=== PATIENT | male | born 1980 | race Caucasian/White ===

== ENCOUNTER 2019-12-01 19:58 | Emergency (ER) | payer OTHER ==
[2019-12-01] MEDS ORDERED: SODIUM CHLORIDE 0.9% 1000ML 1,000 ML IVS ONE (20:06)
[2019-12-01] MEDS ORDERED: ONDANSETRON INJ 4 MG/2 ML VIAL IV ONE (20:06)
[2019-12-01] MEDS ORDERED: MORPHINE SULFATE INJ 10 MG/ML VIAL IV ONE (20:06)
[2019-12-01 20:19] VITALS: O2SAT 99
[2019-12-01] MEDS ORDERED: ALUM & MAG HYDROX-SIMETHICONE 30 ML, LIDOCAINE VISCOUS 2% 15 ML PO ONE ×2 (20:19)
--- NOTE | 2019-12-01 20:19 | ED.PDOC ---
History of Present Illness - General Chief Complaint: Abdominal Pain Stated Complaint: vomiting since 0200, abd pain Time Seen by Provider: 12/01/19 20:01 Information Source: patient, RN notes reviewed, Vital Signs reviewed, family Exam Limitations: no limitations - History of Present Illness Initial Comments: Pt presents for upper abdominal pain and vomiting. States he crawfish last night and awoke at 0200 today with sharp, burning epigastric pain and nausea. States he has vomited multiple times today. Denies fever, chills or diarrhea. Denies any previous abdominal surgeries or gall bladder problems. Took Zofran at 1400 today with improvement. Review of Systems - Review of Systems Constitutional: Denies: chills, fever Respiratory: Denies: cough, short of breath Cardiology: Denies: chest pain, edema, palpitations, syncope Gastrointestinal/Abdominal: States: abdominal pain, nausea, vomiting. Denies: diarrhea Genitourinary: Denies: dysuria, frequency, hematuria Musculoskeletal: Denies: back pain, neck pain Neurological: Denies: headache, paresthesia All other Systems: Reviewed and Negative Past Medical History (General) - Patient Medical History Hx Asthma: No Hx Cardiac Disorders: No Hx Hypertension: No Hx Diabetes: No Hx Gastroesophageal Reflux: Yes Surgical History: no surgical history - Vaccination History Hx Tetanus, Diphtheria Vaccination: Yes Hx Influenza Vaccination: No - Social History Hx Tobacco Use: No Hx Chewing Tobacco Use: Yes Tins Per Day Chewed: 1 Hx Alcohol Use: Yes Family Medical History - Family History Grandparents Hx Cardiac Disease: Yes Physical Exam - Physical Exam General Appearance: Alert, Comfortable, No apparent distress Neck: full range of motion, supple Respiratory: chest non-tender, lungs clear, normal breath sounds, no respiratory distress Cardiovascular/Chest: regular rate, rhythm, no edema Gastrointestinal/Abdominal: soft, other - Mild TTP epigastrium. no guarding or rigidity Back Exam: no CVA tenderness, no vertebral tenderness Extremity: normal range of motion, non-tender, no pedal edema Neurologic: alert, normal mood/affect Skin Exam: normal color Progress - Progress Progress: 12/01/19 22:26 Pt presents to ED with burning upper abdominal pain with N/V since 0200. Thinks might have been due to crawfish he ate the previous night. CT performed to evaluate for obstruction, infection, biliary colic and shows acute gastritis. Labs and VS reassuring. Pain and nausea resolved with GI cocktail, pain meds and antiemetics. D/W pt and spouse results and feel comfortable going home on prilosec and carafate. Will f/u with GI for possible endoscopy if not improving. SRP given. - Results/Orders Results/Orders: CT ABD/PELVIS IMPRESSION: 1. Findings suggestive of nonspecific gastritis. 2. Other findings as above. 12/01/19 20:06 IV:Start .ONCE URINALYSIS Stat 12/01/19 20:07 Hold Metformin x 48Hrs [id number] 12/01/19 20:15 EKG .ONCE Laboratory Results - last 24 hr 12/01/19 12/01/19 20:37 20:37 WBC 12.0 H RBC 5.14 Hgb 14.7 Hct 44.2 MCV 85.9 MCH 28.6 MCHC 33.3 RDW 14.0 Plt Count 322 MPV 7.2 L Absolute Neuts (auto) 10.20 H Absolute Lymphs (auto) 1.10 Absolute Monos (auto) 0.70 Absolute Eos (auto) 0.00 Absolute Basos (auto) 0.00 Neutrophils % 85.0 H Lymphocytes % 8.9 L Monocytes % 5.8 Eosinophils % 0.0 L Basophils % 0.3 Sodium 136 Potassium 3.2 L Chloride 101 Carbon Dioxide 22 Anion Gap 16.2 BUN 10 Creatinine 0.78 BUN/Creatinine Ratio 12.8 Random Glucose 117 H Serum Osmolality 272.0 L Calcium 9.3 Total Bilirubin 0.9 AST 23 ALT 27 Alkaline Phosphatase 49 Serum Total Protein 8.2 Albumin 5.0 Globulin 3.2 Albumin/Globulin Ratio 1.6 Lipase 23 - EKG/XRAY/CT Comments: NSSR, rate 68, nml intervals, no ST abnormality Departure - Departure Clinical Impression: Upper abdominal pain Acute gastritis without bleeding Qualifiers: Gastritis type: other gastritis Qualified Code(s): K29.00 - Acute gastritis without bleeding Nausea & vomiting Qualifiers: Vomiting type: unspecified Vomiting Intractability: non-intractable Qualified Code(s): R11.2 - Nausea with vomiting, unspecified Time of Disposition: 22:21 Disposition: Discharge to Home or Self Care Condition: Good Departure Forms: ED Discharge - Pt. Copy, Patient Portal Self Enrollment Instructions: Gastritis (DC) Diet: bland diet Activity: increase activity as tolerated Prescriptions: Ondansetron HCl [Zofran] 4 mg PO Q6HR PRN #15 tab PRN Reason: Nausea Omeprazole [Prilosec Cap] 20 mg PO DAILY #30 cap Sucralfate Tab [Carafate Tab] 1 gm PO ACHS #60 tablet Home Medications: Ambulatory Orders Omeprazole [Prilosec Cap] 20 mg PO DAILY #30 cap 12/01/19 Ondansetron HCl [Zofran] 4 mg PO Q6HR PRN #15 tab 12/01/19 Sucralfate Tab [Carafate Tab] 1 gm PO ACHS #60 tablet 12/01/19 Comments: Follow up with your PCP in 1-2 days for recheck. SRP given
[2019-12-01] MEDS ORDERED: SODIUM CHLORIDE 0.9% (FLUSH) 10 ML SYG ONE (20:22)
[2019-12-01] MEDS ORDERED: PROMETHAZINE HCL INJ 25 MG in SODIUM CHLORIDE 0.9% 50ML 50 ML IVPB ONE (20:34)
[2019-12-01] MEDS ORDERED: CLOPIDOGREL 75 MG TAB PO ONE (21:51)
--- NOTE | 2019-12-01 22:15 | CT ---
PROCEDURE: CT ABDOMEN PELVIS WITH IV CONTRAST CLINICAL HISTORY: UPPER ABD PAIN, VOMITING TECHNIQUE: Contiguous axial images obtained through the abdomen and pelvis following the uneventful administration of IV contrast. Coronal and sagittal reformatted images were provided. This exam was performed according to our departmental dose-optimization program, which includes automated exposure control, adjustment of the mA and/or kV according to patient size and/or use of iterative reconstruction technique. COMPARISON: None available for comparison. FINDINGS: Lung bases: Clear Liver: Unremarkable Gallbladder and biliary system: Unremarkable Pancreas: Unremarkable Spleen: Unremarkable Adrenals: Unremarkable Kidneys: Normal renal cortical enhancement. No calculi. No hydronephrosis. Bowel: The gastric pylorus appears mildly to moderately thickened. Mild infiltration of the surrounding fat. No obstruction. Appendix: Normal caliber appendix. No findings to suggest acute appendicitis. Urinary bladder: Unremarkable Reproductive: Unremarkable as visualized Lymph nodes: No pathologically enlarged lymph nodes. Peritoneum: No focal fluid collection. No free air. Vessels: No abdominal aortic aneurysm. Abdominal wall: Tiny fat-containing umbilical hernia. Bones: Unremarkable IMPRESSION: 1. Findings suggestive of nonspecific gastritis. 2. Other findings as above. Electronically signed by: Raymundo Hamomnd MD 12/01/2019 10:13 PM CDT
[2019-12-01 23:02] VITALS: BP 147/85; TEMP 98.3
== END 2019-12-01 23:03 | disposition home or self-care (01) ==
LOC: ER 19:58
DX: K29.00 Acute gastritis without bleeding (principal); R10.10 Upper abdominal pain, unspecified; K21.9 Gastro-esophageal reflux disease without esophagitis; R11.2 Nausea with vomiting, unspecified
CPT/HCPCS: 74177; 80053; 83690; 85025; 93005; A4216; J2270; J2405; J2550; J7030